=== PATIENT | male | born 1945 | race Caucasian/White ===

== ENCOUNTER 2018-02-02 12:42 | Emergency (ER) | payer OTHER ==
[~2018-02-02] VITALS: Ht 177.8 cm; Wt 104.3 kg
[2018-02-02 13:54] VITALS: BP 150/69
== END 2018-02-02 15:43 | disposition home or self-care (01) ==
LOC: ER 12:42
DX: S76.011A Strain of muscle, fascia and tendon of right hip, initial encounter (principal); M16.11 Unilateral primary osteoarthritis, right hip; M48.061 Spinal stenosis, lumbar region without neurogenic claudication; E78.5 Hyperlipidemia, unspecified; I10 Essential (primary) hypertension; Z88.0 Allergy status to penicillin; W20.8XXA Other cause of strike by thrown, projected or falling object, initial encounter; Y93.01 Activity, walking, marching and hiking; Y92.092 Bedroom in other non-institutional residence as the place of occurrence of the external cause; Y99.8 Other external cause status
CPT/HCPCS: 72192; 73502

== ENCOUNTER 2018-12-12 12:42 | Emergency (ER) | payer SELFPAY ==
[~2018-12-12] VITALS: Ht 180.3 cm; Wt 108.9 kg
[2018-12-12 13:00] VITALS: BP 139/86
== END 2018-12-12 16:52 | disposition home or self-care (01) ==
LOC: ER 12:50
DX: H10.9 Unspecified conjunctivitis (principal); I10 Essential (primary) hypertension; E78.5 Hyperlipidemia, unspecified; Z88.0 Allergy status to penicillin

== ENCOUNTER 2020-05-02 21:06 | Emergency (ER) | payer SELFPAY ==
[~2020-05-02] VITALS: Ht 180.3 cm; Wt 108.0 kg
[2020-05-02 21:54] LABS: Basophils # (auto) 0 10 ^3/uL (0-0.2); Basophils % (auto) 0.6 % (0.0-2.0); Eosinophils # (auto) 0.1 10 ^3/uL (0-0.8); Eosinophils % (auto) 1.7 % (0.0-7.0); Hematocrit 43.6 % (41.0-53.0); Hemoglobin 15.3 g/dL (13.5-17.5); Lymphocytes # (auto) 1.9 10 ^3/uL (0.4-5.4); Lymphocytes % (auto) 26.6 % (10.0-50.0); Mean Corpuscular Hemoglobin 29.4 pg (28.0-32.0); Mean Corpuscular Volume 84.1 fL (80.0-100.0); Monocytes # (auto) 0.5 10 ^3/uL (0-1.3); Monocytes % (auto) 6.7 % (0.0-12.0); Neutrophils # (auto) 4.6 10 ^3/uL (1.6-8.6); Neutrophils % (auto) 64.4 % (37.0-80.0); Nucleated Red Blood Cells % 0.2 %; Platelet Count (auto) 201 10^3/uL (140-450); Red Blood Cells 5.19 10^6/uL (4.5-5.90); Red Cell Distribution Width 13.7 % (11.8-14.3); White Blood Cell 7.2 10^3/uL (4.4-10.8)
[2020-05-02 22:15] LABS: Albumin 3.8 g/dL (3.4-5.0); Anion Gap 7 (5-15); Aspartate Aminotransferase 17 U/L (15-37); BUN/Creatinine Ratio 18.4; Blood Urea Nitrogen 16 mg/dL (7-18); Calcium 9.2 mg/dL (8.5-10.1); Carbon Dioxide 29 mmol/L (21-32); Chloride 101 mmol/L (98-107); GFR African American 110 mL/min; GFR Non-African American 91 mL/min; Glucose 157 mg/dL (74-106); Potassium 3.4 mmol/L (3.5-5.1); Sodium 137 mmol/L (136-145)
[2020-05-02 22:20] LABS: Alanine Aminotransferase 22 U/L (16-61); Alkaline Phosphatase 116 U/L (45-117); Bilirubin, Total 0.3 mg/dL (0.2-1.0); Total Protein 7.5 g/dL (6.4-8.2)
[2020-05-02 22:22] LABS: INR 0.91 (0.9-1.15); Partial Thromboplastin Time 28.1 sec (23.0-31.2)
[2020-05-03] MEDS ORDERED: PRAM1TAB33 PO (00:46)
[2020-05-03] MEDS ORDERED: INDO50CA82 PO (00:46)
[2020-05-03] MEDS ORDERED: HYDR25TA4 PO (00:46)
[2020-05-03] MEDS ORDERED: AMLO-489 PO (00:46)
[2020-05-03] MEDS ORDERED: ATOR20TA50 PO (00:46)
[2020-05-03] MEDS ORDERED: LANS30CA57 PO (00:46)
[2020-05-03] MEDS ORDERED: GABA-339 PO (00:46)
[2020-05-03] MEDS ORDERED: ZOLP10TA PO (00:46)
[2020-05-03] MEDS ORDERED: SUMA100T15 PO (00:46)
[2020-05-03] MEDS ORDERED: CARB25TA23 PO (00:46)
[2020-05-03] MEDS ORDERED: HYDR-4072 PO (00:46)
[2020-05-03] MEDS ORDERED: IOHEXOL 300 MG/ML 100ML BOTTLE IJ ONE (02:13)
[2020-05-03] MEDS ORDERED: IOHEXOL 350 MG/ML 100ML IJ ONE (02:50)
[2020-05-03 06:12] VITALS: BP 103/64
== END 2020-05-03 06:17 | disposition home or self-care (01) ==
LOC: ER 21:08
DX: R60.9 Edema, unspecified (principal); I10 Essential (primary) hypertension; E78.5 Hyperlipidemia, unspecified
CPT/HCPCS: 36415; 71045; 71260; 74177; 80053; 83735; 83880; 84484; 85025; 85379; 85610; 85730; 93005; 99285; Q9967

== ENCOUNTER 2023-02-07 11:08 | Emergency (ER) | payer MEDICARE, OTHER ==
[~2023-02-07] VITALS: Ht 180.3 cm; Wt 9.0 kg
[~2023-02-07 11:08] MED LIST: AMLO1TAB22 PO; ATOR20TA50 PO; CARB1TAB73 PO; GABA-339 PO; HYDR-4072 PO; HYDR25TA4 PO; INDO50CA82 PO; LANS30CA57 PO; PRAM1TAB33 PO; SUMA100T15 PO; ZOLP10TA PO
[2023-02-07 12:02] VITALS: BP 188/77; PULSE 71; RESP 19; TEMP 97.9; O2SAT 97
== END 2023-02-07 12:57 | disposition home or self-care (01) ==
LOC: ER 11:08
DX: S90.121A Contusion of right lesser toe(s) without damage to nail, initial encounter (principal); I10 Essential (primary) hypertension; E78.5 Hyperlipidemia, unspecified; Z88.8 Allergy status to other drugs, medicaments and biological substances; Z79.899 Other long term (current) drug therapy; W22.8XXA Striking against or struck by other objects, initial encounter; Y93.89 Activity, other specified; Y92.89 Other specified places as the place of occurrence of the external cause; Y99.8 Other external cause status
CPT/HCPCS: 73630